=== PATIENT | male | born 1990 | race Caucasian/White ===

== ENCOUNTER 2020-04-29 15:48 | Emergency (ER) | payer MEDICAID ==
[~2020-04-29] VITALS: Ht 180.3 cm; Wt 69.4 kg
[2020-04-29 16:01] VITALS: BP 106/47
[2020-04-29] MEDS ORDERED: SULF1TAB49 PO (16:24)
[2020-04-29] MEDS ORDERED: sulfamethoxazole/trimethoprim DS (800/160mg) tablet PO ONE (16:25)
--- NOTE | 2020-04-29 16:32 | NUR ---
PT LEFT ER CAUGHT AT ER DOOR BY ANTONIO TOMLINSON ,GIVEN PRX FOR ABX AND LEFT WITHOUT PO ABX AND D/C PAPERWORK .
== END 2020-04-29 16:57 | disposition home or self-care (01) ==
LOC: ER 15:49
DX: F19.10 Other psychoactive substance abuse, uncomplicated (principal); F15.90 Other stimulant use, unspecified, uncomplicated; Z72.89 Other problems related to lifestyle; Z59.0 Homelessness; Z88.6 Allergy status to analgesic agent; Z79.2 Long term (current) use of antibiotics
CPT/HCPCS: 99283